=== PATIENT | female | born 1940 ===

== ENCOUNTER → 2017-01-10 | Outpatient (REF) ==
[2017-01-10 20:15] LABS: THYROID STIMULATING HORMONE 0.019 uIU/mL (0.465-4.680)
== END ==
LOC: ZLAB.WCH 18:08
PROVIDERS: Family Medicine
DX: Z01.89 Encounter for other specified special examinations (principal)

== ENCOUNTER → 2018-03-17 | Outpatient (REF) ==
[2018-03-17 17:11] LABS: THYROID STIMULATING HORMONE 1.11 uIU/mL (0.465-4.680)
== END ==
LOC: ZLAB.WCH 16:04
PROVIDERS: Family Medicine
DX: Z01.89 Encounter for other specified special examinations (principal)